=== PATIENT | female | born 1995 | race Two or more races ===

== ENCOUNTER 2023-06-19 12:12 | Emergency (ER) | payer OTHER ==
[~2023-06-19] VITALS: Ht 160 cm; Wt 74.7 kg
[2023-06-19 12:52] LABS: Basophils # (auto) 0 10 ^3/uL (0-0.2); Basophils % (auto) 0.5 % (0.0-2.0); Eosinophils # (auto) 0.1 10 ^3/uL (0-0.8); Eosinophils % (auto) 0.8 % (0.0-7.0); Hematocrit 44.2 % (36.0-46.0); Hemoglobin 14.8 g/dL (12.2-16.2); Lymphocytes # (auto) 2.5 10 ^3/uL (0.4-5.4); Lymphocytes % (auto) 30.5 % (10.0-50.0); Mean Corpuscular Hgb Conc. 33.5 g/dL (32.0-36.0); Mean Corpuscular Volume 89.7 fL (80.0-100.0); Monocytes # (auto) 0.5 10 ^3/uL (0-1.3); Monocytes % (auto) 5.9 % (0.0-12.0); Neutrophils % (auto) 62.3 % (37.0-80.0); Red Blood Cells 4.93 10^6/uL (4.0-5.20); Red Cell Distribution Width 12.2 % (11.8-14.3); White Blood Cell 8.1 10^3/uL (4.4-10.8)
[2023-06-19 12:56] LABS: Urine Bacteria FEW /hpf (None Seen); Urine Blood 3+ /uL (Negative); Urine Clarity Clear (Clear); Urine Mucus FEW (None Seen); Urine Protein, UAD Negative (Negative); Urine Specific Gravity 1.014 (1.001-1.035); Urine Urobilinogen Normal (Negative); Urine WBC 10 /hpf (0 - 5); Urine pH 6.5 (5.0-8.0)
[2023-06-19 12:57] LABS: Urine Color Straw (Yellow)
[2023-06-19] MEDS ORDERED: NITR-87 PO (14:22)
[2023-06-19 16:23] VITALS: BP 113/65; PULSE 83; RESP 18; TEMP 98.8; O2SAT 97
== END 2023-06-19 16:26 | disposition home or self-care (01) ==
LOC: ER 12:12
DX: O20.0 Threatened abortion (principal); O23.41 Unspecified infection of urinary tract in pregnancy, first trimester; N39.0 Urinary tract infection, site not specified; Z79.899 Other long term (current) drug therapy; Z3A.01 Less than 8 weeks gestation of pregnancy
CPT/HCPCS: 36415; 76801; 76817; 81001; 84702; 85025